=== PATIENT | male | born 1965 | race Caucasian/White ===

== ENCOUNTER → 2020-01-16 10:42 | Outpatient (CLI) | payer OTHER, SELFPAY ==
[2020-01-16 12:40] LABS: HEMOLYSIS < 15 (0-50); Potassium 3.8 mmol/L (3.4-5.1); Salicylate < 1.0 mg/dL (<20)
[2020-01-16 13:16] LABS: Ferritin 186 ng/mL (18-464)
[2020-01-16 17:08] LABS: Hepatitis B Surface Antigen NEGATIVE s/c (NEGATIVE)
[2020-01-17 05:36] LABS: Hepatitis B Core Antibody Negative (Negative)
[2020-01-20 15:50] LABS: Smooth Muscle Antibody 7 Units (0-19)
== END ==
PROVIDERS: Family Provider Internal Medicine Gastroenterology; PCP Family Medicine; Referring Provider Internal Medicine Gastroenterology; Visit Provider Internal Medicine Gastroenterology
DX: R94.5 Abnormal results of liver function studies (principal)
CPT/HCPCS: 36415; 80329; 82728; 83516; 84132; 86704; 87340; G0480

== ENCOUNTER → 2020-02-23 13:22 | Outpatient (CLI) | payer OTHER, SELFPAY ==
[2020-02-23 15:16] LABS: Alanine Aminotransferase 19 IU/L (<50); Albumin 4.6 g/dL (3.5-5.0); Albumin Globulin Ratio 1.4 (1.0-2.8); Alkaline Phosphatase 47 U/L (38-126); Aspartate Aminotransferase 26 IU/L (17-59); Bilirubin Total 0.6 mg/dL (0.2-1.3); Bilirubin Unconjugated 0.5 mg/dL (0.0-1.1); Globulin 3.3 g/dL (1.7-4.1); HEMOLYSIS < 15 (0-50); Total Protein 7.9 g/dL (6.3-8.2)
[2020-02-26 15:42] LABS: Hep C Virus Ab w/Reflex Quant NEGATIVE s/c (NEGATIVE)
== END ==
PROVIDERS: Family Provider Internal Medicine Gastroenterology; PCP Family Medicine; Referring Provider Internal Medicine Gastroenterology; Visit Provider Internal Medicine Gastroenterology
DX: K50.90 Crohn's disease, unspecified, without complications (principal); R94.5 Abnormal results of liver function studies
CPT/HCPCS: 36415; 80076; 86803

== ENCOUNTER → 2020-07-24 14:47 | Outpatient (CLI) | payer OTHER, SELFPAY ==
[2020-07-24] MEDS: COVID-19 VACC #1, MRNA(MOD) 100 MCG/0.5 ML VIAL IM (14:54)
== END ==
PROVIDERS: Family Provider Internal Medicine Gastroenterology; PCP Family Medicine; Visit Provider Internal Medicine
DX: Z23 Encounter for immunization (principal)
CPT/HCPCS: 0011A; 91301

== ENCOUNTER → 2020-08-29 13:35 | Outpatient (CLI) | payer OTHER, SELFPAY ==
[2020-08-29] MEDS: COVID-19 VACC #2, MRNA(MOD) 100 MCG/0.5 ML VIAL IM (13:43)
== END ==
PROVIDERS: Family Provider Internal Medicine Gastroenterology; PCP Family Medicine; Visit Provider Internal Medicine
DX: Z23 Encounter for immunization (principal)
CPT/HCPCS: 0012A; 91301

== ENCOUNTER → 2021-03-20 14:20 | Outpatient (CLI) | payer OTHER, SELFPAY | PROVIDERS: Family Provider Internal Medicine Gastroenterology; PCP Family Medicine; Referring Provider Internal Medicine Gastroenterology; Visit Provider Internal Medicine Gastroenterology | DX: K50.90 Crohn's disease, unspecified, without complications (principal) | CPT/HCPCS: 80230; 82397 ==

== ENCOUNTER → 2024-07-18 10:40 | Outpatient (CLI) | payer OTHER, SELFPAY ==
[2024-07-18 11:37] LABS: Cholesterol 253 mg/dL (140-199); HDL Cholesterol 50 mg/dL (40-60); LDL Cholesterol Calculated 185 mg/dL (<100); Triglycerides 90 mg/dL (35-150)
[2024-07-18 11:44] LABS: Hemoglobin A1C% w Est Avg Glu 4.8 % (4.0-6.0)
[2024-07-18 11:45] LABS: Iron 107 ug/dL (49-181)
[2024-07-18 11:53] LABS: Vitamin D 25 Hydroxy (D3) 39.4 ng/mL (30.0-100.0)
[2024-07-18 12:07] LABS: Free T3, Triiodothyronine Free 4.22 pg/mL (2.77-5.27); Free T4, Direct Thyroxine 1.31 ng/dL (0.78-2.19)
[2024-07-18 12:12] LABS: Ferritin 122 ng/mL (18-464)
[2024-07-18 12:21] LABS: Thyroid Stimulating Hormone 2.78 uIU/mL (0.47-4.68)
[2024-07-18 12:40] LABS: Vitamin B12 528 pg/mL (239-931)
== END ==
PROVIDERS: Family Provider Internal Medicine Gastroenterology; PCP Family Medicine; Referring Provider Family Medicine; Visit Provider Family Medicine
DX: Z13.9 Encounter for screening, unspecified (principal); R53.83 Other fatigue
CPT/HCPCS: 36415; 80061; 82306; 82607; 82728; 83036; 83540; 84439; 84443; 84481

== ENCOUNTER → 2024-08-18 10:10 | Outpatient (CLI) | payer OTHER, SELFPAY ==
--- NOTE | 2024-08-18 10:11 | DI.MG.S_ITS ---
MM diagnostic mammo BI, US breast RT limited: 08/18/2024 BI-RADS: 2 CLINICAL: 59-year old male for bilateral diagnostic mammogram and right diagnostic breast ultrasound. No personal or first-degree family history of breast cancer. The patient reports a palpable abnormality (3 months) in the right breast. PRIOR EXAMS No prior examinations available. MAMMOGRAPHY TECHNIQUE: 2D and 3D (tomosynthesis) digital mammographic views obtained, with additional images as needed for full coverage. Current study was also evaluated with a Computer Aided Detection (CAD) system. ULTRASOUND TECHNIQUE TARGETED Right Breast Ultrasound: Real-time ultrasound exam was performed focused to area of clinical and/or imaging concern. Real-time joyner scale and color doppler imaging of the area of clinical interest was performed with image documentation. DENSITY A. The breasts are almost entirely fatty. MAMMOGRAPHY FINDINGS Right: Correlating with palpable lump there is a circumscribed, oval, fat-containing mass present. Left: No suspicious mass, asymmetry, microcalcification, or other abnormality seen. ULTRASOUND FINDINGS Right: Axilla, Level I, measuring 3.1 x 2 x 0.7 cm: Correlating with palpable lump there is a lipoma. Doppler shows no vascularity. IMPRESSION: Right * No evidence of malignancy with benign findings. Left * No evidence of malignancy. COMMENTS: Findings and recommendations were conveyed to the patient during today's evaluation. Patient is advised to monitor for significant change. OVERALL ASSESSMENT CATEGORY BI-RADS-2: Benign. ELECTRONICALLY SIGNED: Omar Bowles M.D. on 08/18/2024 at 12:37:34 PM PT Interpreting Station ID: [id number]
== END ==
PROVIDERS: Family Provider Internal Medicine Gastroenterology; PCP Family Medicine; Referring Provider Family Medicine; Visit Provider Family Medicine
DX: D17.1 Benign lipomatous neoplasm of skin and subcutaneous tissue of trunk (principal); R92.313 Mammographic fatty tissue density, bilateral breasts; R22.2 Localized swelling, mass and lump, trunk
CPT/HCPCS: 76642; 77066; G0279

== ENCOUNTER 2024-09-27 17:39 | Emergency (ER) | payer OTHER, SELFPAY ==
[2024-09-27 17:43] VITALS: BP 147/67; PULSE 102; RESP 20; TEMP 36.6; O2SAT 96; BMI 26.1
[2024-09-27] MEDS: LIDOCAINE 1% (PF) 5 ML INJ (22:23)
--- NOTE | 2024-09-27 23:29 | ED.WOUNDLAC ---
HPI - Wound/Laceration General Chief Complaint: Wound/Laceration Stated Complaint: pretty good cut on right leg Time Seen by Provider: 09/27/24 19:36 Mode of arrival: Ambulatory History of Present Illness HPI narrative: 59-year-old gentleman with rheumatoid arthritis was working in the [employer] with a scythe, almost done with the weeds and ended up having the scythe cut his right chauhan. Bleeding is controlled. Comes in for further evaluation. Does not appear to be bony or arterial injury. No other Related Data Home Medications ?Medication ?Instructions ?Recorded ?Confirmed ascorbic acid (vitamin C) 500 mg 500 mg PO DAILY Always have 07/12/24 07/12/24 tablet (Vitamin C) cholecalciferol (vitamin D3) 50 50 mcg PO DAILY Historically low 07/12/24 07/12/24 mcg (2,000 unit) tablet (Vitamin level on labs D3) fexofenadine 180 mg tablet 180 mg PO DAILY Seasonal Allergies 07/12/24 07/12/24 infliximab 100 mg intravenous mg IV Crohn's 07/12/24 07/12/24 solution (Remicade) multivitamin (Daily Multi-Vitamin 1 tab PO DAILY Why not? 07/12/24 07/12/24 tablet) phytosterol 300 mg-pantethine 100 cap PO 07/12/24 07/12/24 mg capsule (CholestOff Complete) vit C 250 mg-vit E 90 mg-zinc 40 1 tab PO BID Macular Degeneration 07/12/24 07/12/24 mg-copper 1 [id number] capsule (PreserVision AREDS-2) Allergies Allergy/AdvReac Type Severity Reaction Status Date / Time mold and mildew Allergy Uncoded 09/27/24 17:43 pollen Allergy Uncoded 09/27/24 17:43 Patient History Surgical History (Updated 08/10/17 @ 05:32 by Conversion Provider) Status post rotator cuff repair Family History (Updated 07/12/24 @ 13:42 by Dee Ruiz MD) Grandmother Stroke Mother Age: 83 Hypertension High cholesterol Grandfather No problems noted. Grandmother Stroke Sister Age: 62 Hypertension Social History Smoking Status: Never smoker Smoking Status: Never smoker Exam Initial Vital Signs Initial Vital Signs: Vital Signs Temperature 98 F 09/27/24 17:43 Pulse Rate 102 H 09/27/24 17:43 Respiratory Rate 20 09/27/24 17:43 Blood Pressure 147/67 H 09/27/24 17:43 Pulse Oximetry 96 09/27/24 17:43 Oxygen Delivery Method Room Air 09/27/24 17:43 General: Alert appropriate in no acute distress Respiratory: Able to speak in full sentences, no obvious respiratory distress Skin: No obvious rashes, warm and dry Neurologic: Grossly intact no obvious asymmetries or abnormalities Psych: appropriate insight and affect, cooperative Extremity: There was a 3 cm simple laceration right anterior chauhan. Does not extend through fascial layers were into bone. Bleeding is controlled Procedures Laceration Repair right chauhan: Time of procedure: 23:33 Site: lower extremity Side (If applicable): right Size (cm): 3 Description: linear Depth: simple, single layer Local Anesthetic: lidocaine 1% Amount of anesthesia used (mL): 3 Pre-repair: wound explored, irrigated extensively and deep structures intact Skin layer closed with: nylon Skin layer suture size: 3-0 Number of sutures: 2 Course Orders Ordered: Diphtheria/Tetanus/Acell Pertussis (Tet,Diph,Pertuss(Acell),Vac/Pf 0.5 Ml Syringe) 0.5 ml IM .ONCE ONE Stop: 09/27/24 23:30 Discontinued Medications Lidocaine HCl (Lidocaine 1% 20 Ml) 20 ml INJ INTRA-OP ONE Stop: 09/27/24 22:13 Last Admin: 09/27/24 22:24 Dose: Not Given Documented By: SHELDON Lidocaine HCl (Lidocaine 1% (Pf) 5 Ml) 5 ml INJ NOW ONE Stop: 09/27/24 22:18 Last Admin: 09/27/24 22:23 Dose: 5 ml Documented By: SHELDON Vital Signs Vital signs: Vital Signs - 8 hr 09/27/24 17:43 Temperature 98 F Pulse Rate 102 H Respiratory Rate 20 Blood Pressure 147/67 H Pulse Oximetry 96 Oxygen Delivery Method Room Air MDM - Wound/Laceration MDM Narrative Medical decision making narrative: 59-year-old gentleman with laceration to the right anterior chauhan after working in the [place] Does not involve deeper structures, imaging is not indicated today. Closed with simple interrupted sutures were 20 to be removed in 7 days. Discussed risk of infection and reasons to return to the emergency department. He has not had a tetanus shot in a number of years this is updated today. Questions are answered and he is discharge Discharge Plan Departure Patient Disposition: Home Clinical Impression: Laceration Instructions: DI for Laceration Repair, Diphtheria, Tetanus, and Pertussis (DTaP) Vaccine Activity Restrictions/Additional Instructions: Thank you for coming in today Your wound does not appear to go all the way to the bone. I did cleaned it thoroughly out. Two sutures were placed. I would suggest having the sutures removed on or about October 04. You are welcome to return to the emergency department, you can go to an urgent care or see your regular doctor to have them removed Your tetanus shot was updated today Please keep a simple dressing such as a Band-Aid over the wound. If you have increasing redness, pain, drainage or new findings that suggest infection you do need to be re-evaluated. Prescriptions: No Action fexofenadine 180 mg tablet 180 mg PO DAILY cholecalciferol (vitamin D3) [Vitamin D3] 50 mcg (2,000 unit) tablet 50 mcg PO DAILY ascorbic acid (vitamin C) [Vitamin C] 500 mg tablet 500 mg PO DAILY infliximab [Remicade] 100 mg recon soln IV Patient Comments: Infusion every 8 weeks PreserVision AREDS-2 250-90-40-1 mg capsule 1 tab PO BID multivitamin [Daily Multi-Vitamin] Tablet 1 tab PO DAILY CholestOff Complete 300-100 mg capsule PO Referrals: Dee Ruiz MD [Primary Care Provider, Family Practice] Stand Alone Forms: Patient Portal/API
[2024-09-27] MEDS: TET,DIPH,PERTUSS(ACELL),VAC/PF 0.5 ML SYRINGE IM (23:53)
[2024-09-28] VITALS: BP 136/80; PULSE 78; RESP 18; O2SAT 98
== END 2024-09-28 00:01 | disposition home or self-care (01) ==
PROVIDERS: Emergency Provider Emergency Medicine; Family Provider Internal Medicine Gastroenterology; PCP Family Medicine
DX: S81.811A Laceration without foreign body, right lower leg, initial encounter (principal); W26.8XXA Contact with other sharp object(s), not elsewhere classified, initial encounter; Z23 Encounter for immunization
CPT/HCPCS: 12002; 90471; 99283; 90715